=== PATIENT | male | born 1970 | race Hispanic/Latino ===

== ENCOUNTER 2018-11-29 18:56 | Emergency (ER) | payer OTHER ==
--- NOTE | 2018-11-29 19:46 | ED.PDOC ---
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 HE REMOVED THE LINER FROM A TRASH CANHE SUSTAINED A NEEDLE STICK ON THE RIGHT LOWER LEG AND ALSO ON THE LEFT DISTAL INDEX FINGER. HE NOTIFIED DR. ACUÑA WHO SENDS THE PATIENT HERE FOR NEEDLE STICK PROTOCOL. HE VOICES THAT ABOUT FOUR YEARS AGO HE SUSTAINED A NEEDLE STICK ON THE RIGHT HAND HE WAS PRESSING A LINER INTO THE TRASH CAN. HE THEN ALSO HAD LAB TEST AND EVIDENTLY THE TESTING WAS ALL NEGATIVE. HE DENIES ANY OTHER INJURIES. Timing/Duration: 1-3 hours Severity: mild Improving Factors: nothing Worsening Factors: nothing Associated Symptoms: denies symptoms Allergies/Adverse Reactions: Allergies NO KNOWN ALLERGY Allergy (Unverified 12/27/12 07:22) Review of Systems - Review of Systems Constitutional: States: no symptoms reported EENTM: States: no symptoms reported Respiratory: States: no symptoms reported Cardiology: States: no symptoms reported Gastrointestinal/Abdominal: States: no symptoms reported Genitourinary: States: no symptoms reported Musculoskeletal: States: no symptoms reported Skin: States: other - NEEDLE STICK ON THE RIGHT LOWER LEG AND THE LEFT INDEX FINGER. Neurological: States: no symptoms reported Endocrine: States: no symptoms reported Past Medical History (General) - Patient Medical History Hx Stroke: No Hx Congestive Heart Failure: No Hx Diabetes: No Surgical History: no surgical history - Vaccination History Hx Tetanus, Diphtheria Vaccination: No Hx Influenza Vaccination: No - Social History Hx Tobacco Use: No Family Medical History - Family History Father Family History: Unknown Living Status: Unknown Physical Exam - Physical Exam General Appearance: Alert, Well Developed, Well Groomed, Well Hydrated, Well Nourished Eye Exam: bilateral normal Ears, Nose, Throat: hearing grossly normal, normal ENT inspection Neck: non-tender, full range of motion, supple, normal inspection Respiratory: chest non-tender, lungs clear, normal breath sounds, no respiratory distress, no accessory muscle use Cardiovascular/Chest: normal peripheral pulses, regular rate, rhythm, no edema, no gallop, no JVD Peripheral Pulses: radial,right: 2+, radial,left: 2+ Gastrointestinal/Abdominal: normal bowel sounds, non tender, soft Rectal Exam: deferred Back Exam: normal inspection Extremity: other - NEEDLE SYICK TO THE ANTERIOR ASPECT OF THE RIGHT LOWER LEG AND LFT INDEX FINGER. 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 Copy, Patient Portal Self Enrollment Referrals: SILVANA ACUÑA MD [Referring] - 1-2 Weeks
[2018-11-29] MEDS ORDERED: TETANUS,DIPHTHERIA,PERTUSSIS 1 EA SYG IM ONE (19:48)
[2018-11-29 20:18] VITALS: BP 153/106; TEMP 97.9; O2SAT 96
== END 2018-11-29 20:10 | disposition home or self-care (01) ==
LOC: ER 18:56
DX: Z57.8 Occupational exposure to other risk factors (principal); W46.0XXA Contact with hypodermic needle, initial encounter; Y99.0 Civilian activity done for income or pay; Y92.69 Other specified industrial and construction area as the place of occurrence of the external cause